=== PATIENT | female | born 1950 | race Caucasian/White ===

== ENCOUNTER → 2018-02-18 | Outpatient (CLI) | payer MEDICARE, OTHER | END | disposition home or self-care (01) | LOC: HKI 13:24 | DX: M70.62 Trochanteric bursitis, left hip (principal) | CPT/HCPCS: 20610 ==

== ENCOUNTER → 2019-02-03 | Outpatient (CLI) | payer MEDICARE, OTHER | END | disposition home or self-care (01) | LOC: HKI 10:48 | DX: M70.62 Trochanteric bursitis, left hip (principal); Z96.612 Presence of left artificial shoulder joint; Z96.611 Presence of right artificial shoulder joint; Z98.1 Arthrodesis status | CPT/HCPCS: 73502 ==